=== PATIENT | female | born 1990 | race American Indian/Alaskan Native ===

== ENCOUNTER 2016-09-24 14:42 | Emergency (ER) | payer MEDICAID ==
[2016-09-24 14:42] VITALS: BMI 21.3
[2016-09-24 14:53] VITALS: RESP 18; TEMP 98.4; O2SAT 100
[2016-09-24] MEDS ORDERED: Albuterol-Ipratrop 3 mg / 0.5 (3 ml) UD IH STA (15:26)
[2016-09-24] MEDS ORDERED: Albuterol-Ipratrop 3 mg / 0.5 (3 ml) UD ONE (15:41)
--- NOTE | 2016-09-24 16:28 | C.PDOC ---
History Of Present Illness 26 y/o female presents to the ED with complains of seasonal allergy symptoms including itchy eyes, chest tightness and subjective fever. Pt took claritin this morning and fells better. Denies SOB, cough or any other complaints. Time Seen by Provider: 09/24/16 14:55 Chief Complaint (Nursing): Cough, Cold, Congestion History Per: Patient History/Exam Limitations: no limitations Onset/Duration Of Symptoms: Days Current Symptoms Are (Timing): Still Present Severity: Mild Recent travel outside of the [place]: No Past Medical History Reviewed: Historical Data, Nursing Documentation, Vital Signs Vital Signs: Last Vital Signs Temp 98.4 F 09/24/16 14:48 Pulse 85 09/24/16 16:38 Resp 18 09/24/16 16:38 BP 115/71 09/24/16 16:38 Pulse Ox 100 09/24/16 18:42 - Medical History PMH: Asthma, Bronchitis Family History: States: Unknown Family Hx - Social History Hx Tobacco Use: No Hx Alcohol Use: No Hx Substance Use: No - Immunization History Hx Tetanus Toxoid Vaccination: Yes Hx Influenza Vaccination: No Hx Pneumococcal Vaccination: No Review Of Systems Except As Marked, All Systems Reviewed And Found Negative. Constitutional: Positive for: Fever Eyes: Positive for: Other (itchy eyes) Cardiovascular: Positive for: Other (chest tightness) Respiratory: Negative for: Cough, Shortness of Breath Physical Exam - Physical Exam Appears: Non-toxic, No Acute Distress Skin: Warm, Dry, No Rash Head: Atraumatic, Normacephalic Ear(s): Bilateral: Normal Nose: Discharge (clear) Oral Mucosa: Moist Throat: Normal, No Erythema Neck: Normal ROM, Supple Cardiovascular: Rhythm Regular, No Murmur Respiratory: Normal Breath Sounds, No Rales, No Rhonchi, No Wheezing Gastrointestinal/Abdominal: Soft, No Tenderness Extremity: Bilateral: Atraumatic Neurological/Psych: Oriented x3 ED Course And Treatment O2 Sat by Pulse Oximetry: 100 (on room air) Pulse Ox Interpretation: Normal Reassessment Condition: Improved Medical Decision Making Medical Decision Making: Plan: prednisone, CXR, nebulizer treatment Disposition - Disposition Referrals: Justin Teran MD [Medical Doctor] - Disposition: HOME/ ROUTINE Disposition Time: 16:25 Condition: IMPROVED Additional Instructions: Follow up with PMD and product delivery specialist within 1-2 days. Return to ED if feel worse. 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 - Scribe Statement The provider has reviewed the documentation as recorded by the Cheliibchelsea Li All medical record entries made by the Danny were at my direction and personally dictated by me. I have reviewed the chart and agree that the record accurately reflects my personal performance of the history, physical exam, medical decision making, and the department course for this patient. I have also personally directed, reviewed, and agree with the discharge instructions and disposition.
[2016-09-24 16:38] VITALS: BP 115/71; PULSE 85
--- NOTE | 2016-09-24 17:31 | RAD ---
HISTORY: cough/wheezing COMPARISON: 04/18/15 TECHNIQUE: Chest PA and lateral FINDINGS: LUNGS: No active pulmonary disease. PLEURA: No significant pleural effusion identified. No pneumothorax apparent. CARDIOVASCULAR: Normal. OSSEOUS STRUCTURES: No significant abnormalities. VISUALIZED UPPER ABDOMEN: Normal. OTHER FINDINGS: None. IMPRESSION: No active disease.
== END 2016-09-24 16:38 | disposition home or self-care (01) ==
LOC: C.ER 14:42
DX: R50.9 Fever, unspecified (principal); J30.2 Other seasonal allergic rhinitis

== ENCOUNTER 2016-11-22 09:15 | Emergency (ER) | payer MEDICAID ==
[2016-11-22 09:16] VITALS: BMI 21.3
[2016-11-22 09:25] VITALS: BP 116/79; PULSE 95; RESP 20; TEMP 98.4; O2SAT 98
--- NOTE | 2016-11-22 10:43 | C.PDOC ---
History Of Present Illness 26 year old patient presents to the ED complaining of a headache for the past 3 days. Patient was diagnosed with sinusitis yesterday by her PMD and was given antibiotics. Patient states she still has a headache. She took Motrin last night , but none today. She describes the pain as the worst she's ever had. Patient denies nausea, vomiting, or dizziness. Time Seen by Provider: 11/22/16 09:30 Chief Complaint (Nursing): Headache History Per: Patient History/Exam Limitations: no limitations Current Symptoms Are (Timing): Still Present Severity: Mild Pain Scale Rating Of: 3 Quality: "Pain" Recent travel outside of the [place]: No Past Medical History Reviewed: Historical Data, Nursing Documentation, Vital Signs Vital Signs: Last Vital Signs Temp 98.4 F 11/22/16 09:22 Pulse 95 H 11/22/16 09:22 Resp 20 11/22/16 09:22 BP 116/79 11/22/16 09:22 Pulse Ox 98 11/22/16 12:33 - Medical History PMH: Asthma, Bronchitis Family History: States: Unknown Family Hx - Social History Hx Tobacco Use: No Hx Alcohol Use: No Hx Substance Use: No - Immunization History Hx Tetanus Toxoid Vaccination: Yes Hx Influenza Vaccination: No Hx Pneumococcal Vaccination: No Review Of Systems Except As Marked, All Systems Reviewed And Found Negative. Gastrointestinal: Negative for: Nausea, Vomiting Neurological: Positive for: Headache. Negative for: Dizziness Physical Exam - Physical Exam Appears: Non-toxic, No Acute Distress Skin: Warm, Dry Head: Atraumatic, Normacephalic Eye(s): bilateral: Normal Inspection, PERRL, EOMI Ear(s): Bilateral: Normal Nose: Normal, Other (bilateral maxillary sinus tenderness) Oral Mucosa: Moist Throat: Normal Neck: Normal ROM, Supple Chest: Symmetrical Cardiovascular: Rhythm Regular Respiratory: Normal Breath Sounds, No Rales, No Rhonchi, No Wheezing Back: Normal Inspection, No CVA Tenderness Extremity: Bilateral: Atraumatic Neurological/Psych: Oriented x3, Normal Speech, Normal Cognition Gait: Steady ED Course And Treatment O2 Sat by Pulse Oximetry: 98 (room air) Pulse Ox Interpretation: Normal Disposition - Disposition Referrals: [facility] Mariam Viramontes, [Non-Staff] - Disposition: HOME/ ROUTINE Disposition Time: 10:00 Condition: GOOD Additional Instructions: Thank you for letting us take care of you today. Your provider was Dr. Bearden. You were treated for sinus pressure. The emergency medical care you received today was directed at your acute symptoms. If you were prescribed any medication, please fill it and take as directed. It may take several days for your symptoms to resolve. Return to the Emergency Department if your symptoms worsen, do not improve, or if you have any other problems. Please contact your doctor or call one of the physicians/clinics you have been referred to that are listed on the Patient Visit Information form that is included in your discharge packet. Bring any paperwork you were given at discharge with you along with any medications you are taking to your follow up visit. Our treatment cannot replace ongoing medical care by a primary care provider (PCP) outside of the emergency department. Thank you for allowing the [facility] team to be part of your care today. Continue taking the antibiotic that you were given and follow up with your doctor in 2-3 days for re-evaluation. Prescriptions: Pseudoephedrine HCl [Pseudoephedrine ER] 120 mg PO Q12 #14 tablet.er Instructions: Sinusitis (ED) Forms: Work Excuse - Clinical Impression Clinical Impression: Sinusitis - Scribe Statement The provider has reviewed the documentation as recorded by the Scribe Kaylie Bustillo Provider Attestation: All medical record entries made by the Scribe were at my direction and personally dictated by me. I have reviewed the chart and agree that the record accurately reflects my personal performance of the history, physical exam, medical decision making, and the department course for this patient. I have also personally directed, reviewed, and agree with the discharge instructions and disposition.
== END 2016-11-22 10:10 | disposition home or self-care (01) ==
LOC: C.ER 09:15
DX: J32.9 Chronic sinusitis, unspecified (principal)

== ENCOUNTER 2016-12-10 09:41 | Emergency (ER) | payer MEDICAID ==
[2016-12-10 09:43] VITALS: BMI 20.5
[2016-12-10 09:48] VITALS: RESP 18; TEMP 98.2; O2SAT 100
--- NOTE | 2016-12-10 10:05 | C.PDOC ---
History Of Present Illness 26 yr old female with PMHx of asthma and irregular periods, presents to the ER with complaints of upper back pain, upper chest pain, cough with yellow sputum, vaginal itch prior to period starting and vaginal bleeding with clots, states her period started yesterday. Patient also states she feels dizzy which she is unable to explain. Patient denies fever, SOB, nausea, vomiting, abdominal pain, diarrhea, dysuria, weakness or numbness. Time Seen by Provider: 12/10/16 09:53 Chief Complaint (Nursing): Dizziness/Lightheaded History Per: Patient History/Exam Limitations: no limitations Onset/Duration Of Symptoms: Days Fall Associated With With Symptoms: No Recent travel outside of the [place]: No Past Medical History Reviewed: Historical Data, Nursing Documentation, Vital Signs Vital Signs: Last Vital Signs Temp 98.2 F 12/10/16 15:15 Pulse 68 12/10/16 15:15 Resp 18 12/10/16 15:15 BP 96/64 L 12/10/16 15:15 Pulse Ox 100 12/10/16 17:06 - Medical History PMH: Asthma, Bronchitis Family History: States: No Known Family Hx - Social History Hx Tobacco Use: No Hx Alcohol Use: No Hx Substance Use: No - Immunization History Hx Tetanus Toxoid Vaccination: No Hx Influenza Vaccination: No Hx Pneumococcal Vaccination: No Review Of Systems Constitutional: Negative for: Fever Cardiovascular: Positive for: Chest Pain (Upper ) Respiratory: Positive for: Cough, Sputum (Yellow sputum ). Negative for: Shortness of Breath Gastrointestinal: Negative for: Nausea, Vomiting, Abdominal Pain, Diarrhea Genitourinary: Positive for: Vaginal Bleeding (Due to period, passing clots). Negative for: Dysuria Musculoskeletal: Positive for: Back Pain (Upper back pain ) Neurological: Positive for: Dizziness. Negative for: Weakness, Numbness Physical Exam - Physical Exam Appears: Non-toxic, No Acute Distress Skin: Warm, Dry, No Rash Head: Atraumatic, Normacephalic Eye(s): bilateral: Normal Inspection, PERRL, EOMI (no nystagmus) Oral Mucosa: Moist Neck: Normal ROM Chest: Symmetrical, No Deformity, Tenderness (Minimal upper chest tenderness) Cardiovascular: Rhythm Regular, No Murmur Respiratory: Normal Breath Sounds, No Rales, No Rhonchi, No Stridor, No Wheezing Gastrointestinal/Abdominal: Normal Exam, Soft, No Tenderness, No Distention, No Guarding, No Rebound Back: Other ((+) Minimal bilateral shoulder tenderness) Extremity: Normal ROM, No Calf Tenderness, No Swelling Neurological/Psych: Oriented x3, Normal Speech, Normal Cognition, Normal Cranial Nerves, Normal Motor, Normal Sensation ED Course And Treatment - Laboratory Results Result Diagrams: 12/10/16 11:53 12/10/16 11:53 ECG: Interpreted By Me, Viewed By Me ECG Rhythm: Sinus Bradycardia ECG Interpretation: Normal Rate From EC (BPM) O2 Sat by Pulse Oximetry: 100 (RA) Pulse Ox Interpretation: Normal Progress Note: 1220 - Patient is requesting food. Medical Decision Making Medical Decision Making: PLAN: * CXR * EKG * CBC * CMP * POC * Urinalysis * Motrin PO * Sodium Chloride IV 322 pm pt feeling much better, tolerating po, no longer dizzy. still complains of vaginal itching. will d/c with monistat and physical therapy instructor f/u. pt lying comfortably on stretcher, using phone, in no acute distress. abdomen soft, nd,. nt on re-exam. Disposition Counseled Patient/Family Regarding: Studies Performed, Diagnosis, Need For Followup, Rx Given - Disposition [facility]errals: [facility] [Outside] Disposition: HOME/ ROUTINE Disposition Time: 15:24 Condition: STABLE Additional Instructions: Drink increased fluids. Take Tylenol or Motrin for cramps related to period. Use monistat when period is over. Follow up with your stereo map plotter operator or in medical clinic in the next 1-2 days. 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 - Scribe Statement The provider has reviewed the documentation as recorded by the Scribe Madeline Green All medical record entries made by the Scribe were at my direction and personally dictated by me. I have reviewed the chart and agree that the record accurately reflects my personal performance of the history, physical exam, medical decision making, and the department course for this patient. I have also personally directed, reviewed, and agree with the discharge instructions and disposition.
--- NOTE | 2016-12-10 10:14 | C.PDOC ---
Time Seen by Provider: 12/10/16 09:53 Chief Complaint (Nursing): Dizziness/Lightheaded Past Medical History Vital Signs: Last Vital Signs Temp 98.2 F 12/10/16 09:44 Pulse 60 12/10/16 09:44 Resp 18 12/10/16 09:44 BP 107/72 12/10/16 09:44 Pulse Ox 100 12/10/16 09:44 - Medical History PMH: Asthma, Bronchitis Family History: States: Unknown Family Hx - Social History Hx Tobacco Use: No Hx Alcohol Use: No Hx Substance Use: No - Immunization History Hx Tetanus Toxoid Vaccination: No Hx Influenza Vaccination: No Hx Pneumococcal Vaccination: No ED Course And Treatment O2 Sat by Pulse Oximetry: 100
[2016-12-10 11:22] LABS: SQUAMOUS EPITHIAL 11 /hpf (0-5); URINE BILIRUBIN NEGATIVE (NEGATIVE); URINE BLOOD 3+ (NEGATIVE); URINE CLARITY Hazy (Clear); URINE COLOR Yellow (YELLOW); URINE GLUCOSE (UA) NORMAL (Normal); URINE LEUKOCYTE ESTERASE NEG Leu/uL (Negative); URINE NITRATE NEGATIVE (NEGATIVE); URINE PROTEIN 1+ mg/dL (NEGATIVE); URINE UROBILINOGEN NORMAL mg/dL (0.2-1.0)
[2016-12-10] MEDS ORDERED: Sodium Chloride 0.9% 1,000 ML IV ONE (11:37)
[2016-12-10] MEDS ORDERED: Sodium Chloride 0.9% 1,000 ML ONE (11:42)
[2016-12-10 11:59] LABS: BASO % 0.5 % (0.0-2.0); EOS # 0.1 K/uL (0.0-0.7); EOS % 0.9 % (0.0-4.0); HEMOGLOBIN 12.1 g/dL (11.0-16.0); LYMPH # 2.7 K/uL (1.0-4.3); LYMPH % 37.9 % (20.0-40.0); MEAN CELL VOLUME 97.7 fL (81.0-99.0); MEAN CORPUSCULAR HEMOGLOBIN 32.5 pg (27.0-31.0); MEAN CORPUSCULAR HGB CONC 33.3 g/dL (33.0-37.0); MEAN PLATELET VOLUME 8.9 fL (7.2-11.7); MONO # 0.3 K/uL (0.0-0.8); MONO % 4.1 % (0.0-10.0); NEUT % 56.6 % (50.0-75.0); NRBC % 0.2 % (0.0-2.0); RBC 3.73 Mil/uL (3.80-5.20); RED CELL DISTRIBUTION WIDTH 12.7 % (11.5-14.5)
[2016-12-10 12:09] LABS: GFR AFRICAN-AMERICAN > 60; GFR NON-AFRICAN AMERICAN > 60
[2016-12-10 12:10] LABS: ALB/GLOB RATIO 1.3 (1.0-2.1); ALT/SGPT 31 U/L (9-52); AST/SGOT 22 U/L (14-36); BLOOD UREA NITROGEN 10 mg/dL (7-17); CALCIUM 8.7 mg/dl (8.6-10.4)
[2016-12-10 15:15] VITALS: BP 96/64; PULSE 68
--- NOTE | 2016-12-10 15:37 | RAD ---
HISTORY: coughyellow sputum, asthma COMPARISON: No prior. TECHNIQUE: Chest PA and lateral FINDINGS: LUNGS: No focal infiltrate or effusion. Bibasilar breast and nipple shadows. PLEURA: No significant pleural effusion identified. No pneumothorax apparent. CARDIOVASCULAR: Normal. OSSEOUS STRUCTURES: No significant abnormalities. VISUALIZED UPPER ABDOMEN: Normal. OTHER FINDINGS: None. IMPRESSION: No active disease.
--- NOTE | 2016-12-12 13:35 | CARD ---
APPROVED REPORT EKG Measurement Heart [id number] <Conclusion> Sinus bradycardia Otherwise normal ECG
== END 2016-12-10 15:38 | disposition home or self-care (01) ==
LOC: C.ER 09:41
DX: B37.3 Candidiasis of vulva and vagina (principal); N92.0 Excessive and frequent menstruation with regular cycle
CPT/HCPCS: 71020; 80053; 81001; 82948; 85025; 93005; 96360; 99285; J7040

== ENCOUNTER 2017-03-10 18:46 | Emergency (ER) | payer MEDICAID ==
[2017-03-10 18:46] VITALS: BMI 20.5
[2017-03-10 18:59] VITALS: BP 135/85; PULSE 70; RESP 16; TEMP 98.3; O2SAT 100
--- NOTE | 2017-03-10 19:52 | C.PDOC ---
History Of Present Illness Patient is a 26 year old female, who was brought to the emergency department by BLS complaining of flea bites all over the body onset since last night. Patient reports she picked up a stray cat that had fleas, and now she has fleas along with everyone in her family. Patient has rash over body, neck, and legs. She denies any fever, chills, nausea, vomit or diarrhea. No further medical complaints. PMD: Justin Teran Time Seen by Provider: 03/10/17 19:10 Chief Complaint (Nursing): Lower Extremity Problem/Injury History Per: Patient History/Exam Limitations: no limitations Onset/Duration Of Symptoms: Days (X1) Current Symptoms Are (Timing): Still Present Past Medical History Reviewed: Historical Data, Nursing Documentation, Vital Signs Vital Signs: Last Vital Signs Temp 98.3 F 03/10/17 18:57 Pulse 70 03/10/17 18:57 Resp 16 03/10/17 18:57 BP 135/85 03/10/17 18:57 Pulse Ox 100 03/10/17 19:59 - Medical History PMH: Asthma, Bronchitis Family History: States: Unknown Family Hx - Social History Hx Tobacco Use: No Hx Alcohol Use: No Hx Substance Use: No - Immunization History Hx Tetanus Toxoid Vaccination: No Hx Influenza Vaccination: No Hx Pneumococcal Vaccination: No Review Of Systems Except As Marked, All Systems Reviewed And Found Negative. Constitutional: Negative for: Fever, Chills Gastrointestinal: Negative for: Nausea, Vomiting, Diarrhea Skin: Positive for: Rash (flea bites on her body, neck and legs) Physical Exam - Physical Exam Appears: Well, No Acute Distress Skin: Normal Color, Warm, Dry, Rash (Insect bites to the body, neck and legs. No sign of cellulitis. ) Eye(s): bilateral: Normal Inspection Neck: Normal, Normal ROM, Supple Respiratory: Normal Breath Sounds Extremity: Normal ROM, No Deformity Neurological/Psych: Normal Speech, Normal Motor, Normal Sensation ED Course And Treatment O2 Sat by Pulse Oximetry: 100 (RA) Pulse Ox Interpretation: Normal Disposition - Disposition Referrals: Justin Teran MD [Medical Doctor] - Disposition: HOME/ ROUTINE Disposition Time: 19:50 Condition: GOOD Additional Instructions: Follow up with the medical doctor/clinic within 1-2 days. Return if worsened. Prescriptions: DiphenhydrAMINE [Benadryl] 25 mg PO QID #28 cap Permethrin 1% Kit [Nix Complete Lice Elimination Kit 1%] 59 ml TP ONCE #1 bottle Permethrin 5% [Permethrin 5% Cream] 60 gm EXT ONCE #2 tube Instructions: Insect Bite or Sting (ED) Forms: [employer] (Sri Lankan) - Clinical Impression Clinical Impression: Insect bite - Scribe Statement The provider has reviewed the documentation as recorded by the Cheliibchelsea Sethi All medical record entries made by the Cheliibchelsea were at my direction and personally dictated by me. I have reviewed the chart and agree that the record accurately reflects my personal performance of the history, physical exam, medical decision making, and the department course for this patient. I have also personally directed, reviewed, and agree with the discharge instructions and disposition.
== END 2017-03-10 20:07 | disposition home or self-care (01) ==
LOC: C.ER 18:46
DX: S80.862A Insect bite (nonvenomous), left lower leg, initial encounter (principal); S80.861A Insect bite (nonvenomous), right lower leg, initial encounter; S10.96XA Insect bite of unspecified part of neck, initial encounter; W57.XXXA Bitten or stung by nonvenomous insect and other nonvenomous arthropods, initial encounter

== ENCOUNTER 2017-04-18 19:51 | Emergency (ER) | payer MEDICAID ==
[2017-04-18 19:51] VITALS: BMI 20.5
[2017-04-18 20:02] VITALS: RESP 18; TEMP 97.8
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
[2017-04-18 20:50] VITALS: BP 105/67; PULSE 66
[2017-04-18 20:57] VITALS: O2SAT 98
== END 2017-04-18 20:55 | disposition home or self-care (01) ==
LOC: C.ER 19:51
DX: S29.012D Strain of muscle and tendon of back wall of thorax, subsequent encounter (principal); X58.XXXD Exposure to other specified factors, subsequent encounter; R07.89 Other chest pain

== ENCOUNTER 2017-06-09 12:10 | Emergency (ER) | payer MEDICAID ==
[2017-06-09 12:26] VITALS: BMI 20.8
--- NOTE | 2017-06-09 14:49 | C.PDOC ---
History Of Present Illness 26 year old female, with history of yeast infection, presents to ED for evaluation of vaginal itching, and suprapubic abdominal pain for the past 2 months. Pt reports using prescribed and over the counter vaginal cream without relief. Pt also reports dysuria and urinary frequency for the past few days. Otherwise, denies hematuria, back pain, n/v/d, constipation, or fever. Notes last menstrual period was 04/13/17. Time Seen by Provider: 06/09/17 12:45 Chief Complaint (Nursing): Abdominal Pain History Per: Patient History/Exam Limitations: no limitations Onset/Duration Of Symptoms: Days Current Symptoms Are (Timing): Still Present Location Of Pain/Discomfort: Suprapubic Radiation Of Pain To:: None Quality Of Discomfort: "Pain" Associated Symptoms: Urinary Symptoms. denies: Loss Of Appetite, Back Pain, Chest Pain, Constipation Exacerbating Factors: None Alleviating Factors: None Recent travel outside of the [place]: No Additional History Per: Patient Abnormal Vaginal Bleeding: No Last Menstral Period: 04/13/17 Past Medical History Reviewed: Historical Data, Nursing Documentation, Vital Signs Vital Signs: Last Vital Signs Temp 97.7 F 06/09/17 12:26 Pulse 83 06/09/17 12:26 Resp 18 06/09/17 12:26 BP 126/83 06/09/17 12:26 Pulse Ox 100 06/09/17 17:59 - Medical History PMH: Asthma, Bronchitis Denies: Chronic Kidney Disease Family History: States: Unknown Family Hx - Social History Hx Tobacco Use: No Hx Alcohol Use: No Hx Substance Use: No - Immunization History Hx Tetanus Toxoid Vaccination: No Hx Influenza Vaccination: No Hx Pneumococcal Vaccination: No Review Of Systems Except As Marked, All Systems Reviewed And Found Negative. Constitutional: Negative for: Fever, Chills Gastrointestinal: Positive for: Abdominal Pain. Negative for: Nausea, Vomiting , Diarrhea, Constipation Genitourinary: Positive for: Dysuria, Frequency, Vaginal Discharge (vaginal itching). Negative for: Incontinence, Hematuria, Vaginal Bleeding, Rash Musculoskeletal: Negative for: Back Pain Physical Exam - Physical Exam Appears: Non-toxic, No Acute Distress Skin: Normal Color, Warm, Dry Head: Atraumatic, Normacephalic Eye(s): bilateral: Normal Inspection Oral Mucosa: Moist Chest: Symmetrical Cardiovascular: Rhythm Regular Respiratory: No Accessory Muscle Use Gastrointestinal/Abdominal: Normal Exam, Soft, No Tenderness, No Guarding, No Rebound Back: No CVA Tenderness Extremity: Normal ROM Neurological/Psych: Oriented x3, Normal Speech ED Course And Treatment O2 Sat by Pulse Oximetry: 100 (RA) Pulse Ox Interpretation: Normal - CT Scan/US Preg 1st trimester US Other Rad Studies (CT/US): Read By Radiologist, Radiology Report Reviewed CT/US Interpretation: PROCEDURE: OB Pelvic Ultrasound. HISTORY: , abdominal pain. COMPARISON: None available. FINDINGS: UTERUS: Gestational sac: Single intrauterine gestation. Heart rate: 140 bpm. age ( Ultrasound estimated): 6 weeks 4 days 0 weeks 3 days. Lizabeth-gestational hemorrhage: There is 1.9 x 0.8 x 1.3 centimeter subchorionic bleed noted adjacent to the gestational sac. Date of delivery (Ultrasound estimated) : . Uterus measures 9.5 x 5.8 x 6.5 cm. Normal in size and appearance. CERVIX: Long and closed. No cervical abnormality seen. RIGHT OVARY: Measures 3.3 x 2.3 x 2.7 cm. No mass lesion. Normal flow. Complex cyst may represent corpus luteum cyst noted at the right ovary measures 1.5 x 1.3 x 1.8 centimeter. LEFT OVARY: Measures 2.7 x 1.5 x 2.3 cm. No solid mass. Normal flow. FREE FLUID: None. OTHER FINDINGS: None. IMPRESSION: Single intrauterine live with ultrasound estimated gestational age of 6 weeks 4 days 0 weeks 3 days. Estimated date of delivery by ultrasound is 2017. Subchorionic bleed seen adjacent to the gestational sac measures 1.9 x 0.8 x 1.3 centimeter. Interval follow-up reassessment by ultrasound is suggested. Progress Note: UA, blood work, Preg 1st trimester ultrasound ordered and reviewed. On reassessment, patient is resting comfortably, and is in no acute distress. Patient was instructed to follow up with physician/clinic in 1-2 days for further evaluation. Disposition Counseled Patient/Family Regarding: Diagnosis, Need For Followup, Rx Given - Disposition Disposition: HOME/ ROUTINE Disposition Time: 18:10 Condition: STABLE Additional Instructions: Please follow up with [facility] Take meds as directed Return to ER if worse Prescriptions: Nitrofurantoin Macrocrystals [Macrobid] 1 cap PO BID #14 cap Instructions: Urinary Tract Infection in (ED) Forms: [facility] (Eth[place]ian) - Clinical Impression Clinical Impression: , UTI (urinary tract infection) - PA / CONSTRUCTION COORDINATOR / Resident Statement MD/DO has reviewed & agrees with the documentation as recorded. - Scribe Statement The provider has reviewed the documentation as recorded by the Scribe Allyson Bustillo All medical record entries made by the Scribe were at my direction and personally dictated by me. I have reviewed the chart and agree that the record accurately reflects my personal performance of the history, physical exam, medical decision making, and the department course for this patient. I have also personally directed, reviewed, and agree with the discharge instructions and disposition.
[2017-06-09 15:07] VITALS: RESP 18
[2017-06-09 15:59] LABS: SQUAMOUS EPITHIAL 4 /hpf (0-5); URINE BACTERIA FEW (<OCC); URINE BILIRUBIN NEGATIVE (NEGATIVE); URINE BLOOD NEGATIVE (NEGATIVE); URINE CLARITY Hazy (Clear); URINE COLOR Yellow (YELLOW); URINE GLUCOSE (UA) NORMAL (Normal); URINE LEUKOCYTE ESTERASE NEG Leu/uL (Negative); URINE NITRATE POSITIVE (NEGATIVE); URINE PROTEIN NEGATIVE (NEGATIVE); URINE UROBILINOGEN NORMAL mg/dL (0.2-1.0)
--- NOTE | 2017-06-09 17:34 | US ---
PROCEDURE: OB Pelvic Ultrasound HISTORY: , abdominal pain COMPARISON: None available. FINDINGS: UTERUS: Gestational sac: Single intrauterine gestation. Heart rate: 140 bpm. age (Ultrasound estimated): 6 weeks 4 days 0 weeks 3 days Lizabeth-gestational hemorrhage: There is 1.9 x 0.8 x 1.3 centimeter subchorionic bleed noted adjacent to the gestational sac. Date of delivery (Ultrasound estimated) : 01/29/2018 Uterus measures 9.5 x 5.8 x 6.5 cm. Normal in size and appearance. CERVIX: Long and closed. No cervical abnormality seen. RIGHT OVARY: Measures 3.3 x 2.3 x 2.7 cm. No mass lesion. Normal flow. Complex cyst may represent corpus luteum cyst noted at the right ovary measures 1.5 x 1.3 x 1.8 centimeter. LEFT OVARY: Measures 2.7 x 1.5 x 2.3 cm. No solid mass. Normal flow. FREE FLUID: None. OTHER FINDINGS: None. IMPRESSION: Single intrauterine live with ultrasound estimated gestational age of 6 weeks 4 days 0 weeks 3 days. Estimated date of delivery by ultrasound is 01/29/2018. Subchorionic bleed seen adjacent to the gestational sac measures 1.9 x 0.8 x 1.3 centimeter. Interval follow-up reassessment by ultrasound is suggested.
[2017-06-09 18:30] VITALS: BP 118/62; PULSE 80; TEMP 97.1; O2SAT 99
== END 2017-06-09 18:29 | disposition home or self-care (01) ==
LOC: C.ER 12:10
DX: O23.41 Unspecified infection of urinary tract in pregnancy, first trimester (principal); Z3A.01 Less than 8 weeks gestation of pregnancy

== ENCOUNTER 2017-06-18 21:15 | Emergency (ER) | payer MEDICAID ==
[2017-06-18 21:15] VITALS: BMI 20.8
[2017-06-18 21:26] VITALS: RESP 18; O2SAT 100
[2017-06-18] MEDS ORDERED: DiphenhydrAMINE 12.5 mg/5 ml LIQ UD (5 ml) PO STA (21:58)
[2017-06-18] MEDS ORDERED: Albuterol 0.083% Inhal Sol (2.5 mg/3 mL) UD INH SCH (22:00)
[2017-06-18] MEDS ORDERED: Albuterol-Ipratrop 3 mg / 0.5 (3 ml) UD ONE (22:10)
[2017-06-18] MEDS ORDERED: DiphenhydrAMINE 12.5 mg/5 ml LIQ UD (5 ml) ONE ×2 (22:12)
[2017-06-18] MEDS ORDERED: Albuterol 0.083% Inhal Sol (2.5 mg/3 mL) UD ONE (22:13)
[2017-06-18 23:08] LABS: HCG,QUALITATIVE URINE POSITIVE (NEGATIVE); SQUAMOUS EPITHIAL 11 /hpf (0-5); URINE BACTERIA RARE (<OCC); URINE BILIRUBIN NEGATIVE (NEGATIVE); URINE BLOOD NEGATIVE (NEGATIVE); URINE CLARITY Hazy (Clear); URINE COLOR Yellow (YELLOW); URINE GLUCOSE (UA) NORMAL (Normal); URINE LEUKOCYTE ESTERASE NEG Leu/uL (Negative); URINE NITRATE NEGATIVE (NEGATIVE); URINE PROTEIN NEGATIVE (NEGATIVE); URINE UROBILINOGEN NORMAL mg/dL (0.2-1.0)
[2017-06-18 23:27] VITALS: BP 97/59; PULSE 90; TEMP 98.1
--- NOTE | 2017-06-18 23:30 | C.PDOC ---
History Of Present Illness Patient is a 26 y/o female who presents to the ED with complaints of cough and congestion for the last 2 days. Patient reports her asthma is acting up and admits to being 8 weeks . Patient notes generalized body aches but denies any localized abdominal pain or vaginal discharge or bleeding. No other physical complaints at this time. Time Seen by Provider: 06/18/17 21:35 Chief Complaint (Nursing): Cough, Cold, Congestion History Per: Patient History/Exam Limitations: no limitations Onset/Duration Of Symptoms: Days (2 days) Current Symptoms Are (Timing): Still Present Associated Symptoms: Cough, Nasal Congestion Recent travel outside of the [place]: No Past Medical History Reviewed: Historical Data, Nursing Documentation, Vital Signs Vital Signs: Last Vital Signs Temp 98.1 F 06/18/17 23:26 Pulse 90 06/18/17 23:26 Resp 18 06/18/17 23:26 BP 97/59 L 06/18/17 23:26 Pulse Ox 100 06/19/17 00:17 - Medical History PMH: Asthma, Bronchitis Denies: Chronic Kidney Disease Surgical History: No Surg Hx Family History: States: No Known Family Hx - Social History Hx Tobacco Use: No Hx Alcohol Use: No Hx Substance Use: No - Immunization History Hx Tetanus Toxoid Vaccination: No Hx Influenza Vaccination: No Hx Pneumococcal Vaccination: No Review Of Systems ENT: Positive for: Nose Congestion Respiratory: Positive for: Cough Gastrointestinal: Negative for: Abdominal Pain Musculoskeletal: Positive for: Other (generalized body aches) Physical Exam - Physical Exam Appears: Well, Non-toxic, No Acute Distress Eye(s): bilateral: Normal Inspection Oral Mucosa: Moist Throat: Normal, No Erythema, No Exudate Cardiovascular: Rhythm Regular, No Murmur Respiratory: Decreased Breath Sounds, Wheezing (scattered, expiratory) Gastrointestinal/Abdominal: Soft, No Tenderness Neurological/Psych: Oriented x3, Normal Speech, Normal Cognition, Other (no focal deficits) ED Course And Treatment O2 Sat by Pulse Oximetry: 100 Progress Note: Tylenol, Prednisone, and Benadryl administered. Nebulizer treatment given. On re-eval, patient's breathing improved but complains of onset of PAGAN. Patient okay with being sent home and advised to follow up with PMD if symptoms worsen. Disposition Counseled Patient/Family Regarding: Diagnosis, Need For Followup, Rx Given - Disposition Disposition: HOME/ ROUTINE Disposition Time: 23:27 Condition: STABLE Additional Instructions: Please follow up with PMD Take meds as directed Increase PO follow up with OB/ [facility] Bed rest/ Tylenol for pain Return to ER if worse Prescriptions: Albuterol HFA [Ventolin HFA 90 mcg/actuation (8 g)] 2 puff IH [id number] #1 inhaler Albuterol 0.083% [Albuterol 0.083% Inhal Meeta (2.5 mg/3 ml) UD] 2.5 mg IH TID # 100 neb predniSONE [Prednisone] 40 mg PO DAILY #8 tab Instructions: Upper Respiratory Infection (ED) Forms: [employer] (Romansh) - Clinical Impression Clinical Impression: Influenza-like illness - Scribe Statement The provider has reviewed the documentation as recorded by the Scribe Mireille Ghosh All medical record entries made by the Scribe were at my direction and personally dictated by me. I have reviewed the chart and agree that the record accurately reflects my personal performance of the history, physical exam, medical decision making, and the department course for this patient. I have also personally directed, reviewed, and agree with the discharge instructions and disposition.
== END 2017-06-18 23:40 | disposition home or self-care (01) ==
LOC: C.ER 21:15
DX: O26.891 Other specified pregnancy related conditions, first trimester (principal); J11.1 Influenza due to unidentified influenza virus with other respiratory manifestations; Z3A.08 8 weeks gestation of pregnancy

== ENCOUNTER 2018-02-08 16:16 | Emergency (ER) | payer MEDICAID, OTHER ==
[2018-02-08 16:17] VITALS: BMI 20.8
[2018-02-08 16:52] VITALS: BP 134/88; PULSE 76; RESP 16; TEMP 98.2; O2SAT 100
--- NOTE | 2018-02-08 17:21 | C.PDOC ---
History Of Present Illness 27 yo female come in for evaluation of "vaginal pain" developed fo past 3 days. Pt reports, pain is localized over " vaginal area", pain on urination, scant white vaginal discharge. Otherwise, pt denies recent illness, fever, chills, sore throat, abd. pain, N/V, back pain, hematuria, denies recent unprotected sex. Ambulate to Ed for evaluation, not in any apparent distress. Time Seen by Provider: 02/08/18 16:48 Chief Complaint (Nursing): Female Genitourinary History Per: Patient Past Medical History Reviewed: Historical Data, Nursing Documentation, Vital Signs Vital Signs: Last Vital Signs Temp 98.2 F 02/08/18 16:50 Pulse 76 02/08/18 16:50 Resp 16 02/08/18 16:50 BP 134/88 02/08/18 16:50 Pulse Ox 100 02/08/18 17:23 - Medical History PMH: Asthma, Bronchitis Denies: Chronic Kidney Disease Surgical History: Carotid Endarterectomy, (12/03/17) Family History: States: Unknown Family Hx - Social History Hx Tobacco Use: No Hx Alcohol Use: No Hx Substance Use: No - Immunization History Hx Tetanus Toxoid Vaccination: No Hx Influenza Vaccination: No Hx Pneumococcal Vaccination: No Review Of Systems Except As Marked, All Systems Reviewed And Found Negative. Constitutional: Negative for: Fever, Chills ENT: Negative for: Throat Pain Cardiovascular: Negative for: Chest Pain, Palpitations Respiratory: Negative for: Cough, Shortness of Breath Gastrointestinal: Negative for: Nausea, Vomiting, Abdominal Pain Genitourinary: Positive for: Incontinence, Vaginal Discharge. Negative for: Dysuria Musculoskeletal: Negative for: Neck Pain, Back Pain Skin: Negative for: Rash Neurological: Negative for: Weakness, Numbness Physical Exam - Physical Exam Appears: Well, Non-toxic, No Acute Distress Skin: Normal Color, Warm, Dry, No Rash Eye(s): bilateral: PERRL Nose: No Flaring, No Discharge Oral Mucosa: Moist Tongue: Normal Appearing Throat: No Erythema, No Drooling Neck: Supple Cardiovascular: Rhythm Regular Respiratory: No Decreased Breath Sounds, No Accessory Muscle Use, No Stridor, No Wheezing Gastrointestinal/Abdominal: Soft, No Tenderness, No Distention, No Guarding Back: No CVA Tenderness Pelvic: No Vaginal Bleeding, Vaginal Discharge (copious white-thick discharge), No Cervical Motion Tenderness, No Adnexal Tenderness Extremity: Normal ROM, No Deformity, No Swelling Neurological/Psych: Oriented x3, Normal Speech ED Course And Treatment - Laboratory Results Urine POC: Negative O2 Sat by Pulse Oximetry: 100 Pulse Ox Interpretation: Normal Progress Note: On re-eval, pt is afebrile, hemodynamicaly stable. NOn-toxic. Ambulatory in ED with stable gait. ENT: no acute findings. ABd: benign, (-) guarding, (-) rebound. back: (-) CVA tenderness. UA results review (+) UTI. Pt has clinical findings c/w UTI, candidal vulvovaginitis. Pt advised on course of ds. ref. to F/U with PMD, ASSISTANT BOOKKEEPER in 2-3 days for re-eval. return to ED if any worsening or new changes. Disposition Counseled Patient/Family Regarding: Studies Performed, Diagnosis, Need For Followup, Rx Given - Disposition Referrals: Justin Teran MD [Medical Doctor[facility] - [facility]] Disposition: HOME/ ROUTINE Disposition Time: 18:01 Condition: STABLE Additional Instructions: Encourage fluids Take medication s prescribed Follow up with PMD, ASSISTANT BOOKKEEPER in 2-3 days for re-evaluation. return to Ed if any worsening or new changes. Prescriptions: Miconazole/Cleanser 17 On Wipe [Monistat 7 Combination Pack] 1 each VG HS #1 kit Nitrofurantoin Macrocrystals [Macrobid] 1 cap PO BID #14 cap Instructions: Urinary Tract Infections in Adults, Vulvovaginal Yeast Infection Forms: [facility] (Guyanese) - Clinical Impression Clinical Impression: Yeast infection, UTI (urinary tract infection)
[2018-02-08 17:29] LABS: HCG,QUALITATIVE URINE NEGATIVE (NEGATIVE)
[2018-02-08 17:46] LABS: SQUAMOUS EPITHIAL 1 /hpf (0-5); URINE BACTERIA FEW (<OCC); URINE BILIRUBIN NEGATIVE (NEGATIVE); URINE BLOOD 1+ (NEGATIVE); URINE CLARITY Clear (Clear); URINE COLOR Yellow (YELLOW); URINE GLUCOSE (UA) NORMAL (Normal); URINE PROTEIN NEGATIVE (NEGATIVE); URINE UROBILINOGEN NORMAL mg/dL (0.2-1.0)
[2018-02-08 17:51] LABS: URINE LEUKOCYTE ESTERASE 1+ Leu/uL (Negative)
== END 2018-02-08 18:36 | disposition home or self-care (01) ==
LOC: C.ER 16:16
DX: N39.0 Urinary tract infection, site not specified (principal); B37.3 Candidiasis of vulva and vagina

== ENCOUNTER 2018-08-21 13:40 | Emergency (ER) | payer SELFPAY ==
[2018-08-21 13:40] VITALS: BMI 20.8
[2018-08-21 14:03] VITALS: TEMP 97.6; O2SAT 100
[2018-08-21 16:14] LABS: BASO % 0.3 % (0.0-2.0); EOS # 0.1 K/uL (0.0-0.7); EOS % 0.5 % (0.0-4.0); HEMOGLOBIN 12.4 g/dL (11.0-16.0); LYMPH # 2.6 K/uL (1.0-4.3); LYMPH % 22.8 % (20.0-40.0); MEAN CELL VOLUME 98.3 fL (81.0-99.0); MEAN CORPUSCULAR HEMOGLOBIN 32.6 pg (27.0-31.0); MEAN CORPUSCULAR HGB CONC 33.2 g/dL (33.0-37.0); MEAN PLATELET VOLUME 8.7 fL (7.2-11.7); MONO # 0.5 K/uL (0.0-0.8); MONO % 4.2 % (0.0-10.0); NEUT # 8.4 K/uL (1.8-7.0); NEUT % 72.2 % (50.0-75.0); RBC 3.79 Mil/uL (3.80-5.20); RED CELL DISTRIBUTION WIDTH 13.3 % (11.5-14.5); WHITE BLOOD COUNT 11.6 K/uL (4.8-10.8)
[2018-08-21 16:15] LABS: SQUAMOUS EPITHIAL 7 /hpf (0-5); URINE BACTERIA RARE (<OCC); URINE BILIRUBIN NEGATIVE (NEGATIVE); URINE BLOOD NEGATIVE (NEGATIVE); URINE CLARITY Hazy (Clear); URINE COLOR Yellow (YELLOW); URINE GLUCOSE (UA) NORMAL (Normal); URINE LEUKOCYTE ESTERASE NEG Leu/uL (Negative); URINE PROTEIN NEGATIVE (NEGATIVE); URINE UROBILINOGEN NORMAL mg/dL (0.2-1.0)
[2018-08-21 16:21] LABS: INR 1.1; PARTIAL THROMBOPLASTIN TIME 32 SECONDS (21-34); PROTHROMBIN TIME 11.5 SECONDS (9.7-12.2)
[2018-08-21 16:24] LABS: ALB/GLOB RATIO 1.7 (1.0-2.1); ALBUMIN 4.8 g/dL (3.5-5.0); ALT/SGPT 16 U/L (9-52); AST/SGOT 21 U/L (14-36); BLOOD UREA NITROGEN 6 mg/dL (7-17); GFR NON-AFRICAN AMERICAN > 60
[2018-08-21 16:46] LABS: CK-MB < 0.22 ng/mL (0.0-3.38)
[2018-08-21 16:51] LABS: D DIMER < 200 ng/mlDDU (0-243)
--- NOTE | 2018-08-21 17:30 | US ---
Date of service: 08/21/2018 PROCEDURE: OB Pelvic Ultrasound HISTORY: , pelvic pain LMP: 06/26/2018 COMPARISON: None available. FINDINGS: UTERUS: Gestational sac: Single live intrauterine gestation. Heart rate: 158 bpm. Gestational sac diameter measures 3.67 cm corresponding to 8 weeks and 6 days of gestational age. Yolk sac is visualized. pole measures 1.74 cm corresponding to 8 weeks and 1 day of gestational age. age (Ultrasound estimated): 8 weeks and 4 days Perigestational hemorrhage: There is a 2.4 x 0.7 x 1.4 cm subchorionic hemorrhage. Date of delivery (Ultrasound estimated) : 03/29/2019 Uterus measures 10.0 x 7.1 x 6.5 cm. Normal in size and appearance. CERVIX: Measures 2.15 cm. Long and closed. No cervical abnormality seen. There is a 2.0 x 1.4 x 2.1 cm corpus luteum cyst. RIGHT OVARY: Measures 3.3 x 2.7 x 3.3 cm. No mass lesion. Normal flow. LEFT OVARY: Measures 2.2 x 1.7 x 1.7 cm. No solid mass. Normal flow. FREE FLUID: None. OTHER FINDINGS: None. IMPRESSION: 1. Single live intrauterine gestation with mean gestational age of 8 weeks and 4 days. The estimated date of delivery by ultrasound is 03/29/2019. The ultrasound dates correspond with the clinical dates. 2. 2.4 x 0.7 x 1.4 cm subchorionic hemorrhage. Clinical follow-up is advised.
--- NOTE | 2018-08-21 18:02 | C.PDOC ---
History Of Present Illness 28 y/o female, 8 week , presents to the ER complaining of suprapubic abdominal pain. Patient states that she also has some mid chest pain. Patient denies having fever,chills, nausea, vomiting, dysuria, hematuria,vaginal bleed ing, and vaginal discharge. Time Seen by Provider: 08/21/18 14:41 Chief Complaint (Nursing): Chest Pain History Per: Patient History/Exam Limitations: no limitations Onset/Duration Of Symptoms: Days Current Symptoms Are (Timing): Still Present Severity: Moderate Past Medical History Reviewed: Historical Data, Nursing Documentation, Vital Signs Vital Signs: Last Vital Signs Temp 97.6 F 08/21/18 13:59 Pulse 65 08/21/18 16:16 Resp 14 08/21/18 16:16 BP 103/68 08/21/18 16:16 Pulse Ox 100 08/21/18 16:16 - Medical History PMH: Asthma, Bronchitis Denies: Chronic Kidney Disease Surgical History: Carotid Endarterectomy, (12/03/17) Family History: States: No Known Family Hx - Social History Hx Tobacco Use: No Hx Alcohol Use: No Hx Substance Use: No - Immunization History Hx Tetanus Toxoid Vaccination: No Hx Influenza Vaccination: No Hx Pneumococcal Vaccination: No Review Of Systems Except As Marked, All Systems Reviewed And Found Negative. Constitutional: Negative for: Fever, Chills Cardiovascular: Positive for: Chest Pain Respiratory: Negative for: Shortness of Breath Gastrointestinal: Positive for: Abdominal Pain. Negative for: Nausea, Vomiting Genitourinary: Negative for: Dysuria, Hematuria, Vaginal Discharge, Vaginal Bleeding Physical Exam - Physical Exam Appears: Non-toxic, No Acute Distress Skin: Normal Color, Warm, Dry Head: Atraumatic, Normacephalic Eye(s): bilateral: Normal Inspection Nose: Normal Oral Mucosa: Moist Neck: Supple Chest: Symmetrical, Tenderness (signficant reproducible chest wall tenderness) Cardiovascular: Rhythm Regular Respiratory: Normal Breath Sounds, No Rales, No Rhonchi, No Wheezing Gastrointestinal/Abdominal: Soft, Tenderness (mild suprapubic tenderness), No Guarding, No Rebound Neurological/Psych: Oriented x3, Normal Speech ED Course And Treatment - Laboratory Results Result Diagrams: 08/21/18 16:01 08/21/18 16:01 Lab Results: PT 11.5 SECONDS (9.7-12.2) 08/21/18 16:01 INR 1.1 08/21/18 16:01 APTT 32 SECONDS (21-34) 08/21/18 16:01 D-Dimer, Quantitative < 200 ng/mlDDU (0-243) 08/21/18 16:01 Troponin I < 0.0120 ng/mL (0.00-0.120) 08/21/18 16:01 Total Bilirubin 0.6 mg/dL (0.2-1.3) 08/21/18 16:01 AST 21 U/L (14-36) 08/21/18 16:01 ALT 16 U/L (9-52) 08/21/18 16:01 Alkaline Phosphatase 62 U/L (38-126) 08/21/18 16:01 Total Protein 7.5 g/dL (6.3-8.3) 08/21/18 16:01 Albumin 4.8 g/dL (3.5-5.0) 08/21/18 16:01 Globulin 2.8 gm/dL (2.2-3.9) 08/21/18 16:01 Albumin/Globulin Ratio 1.7 (1.0-2.1) 08/21/18 16:01 Urine Color Yellow (YELLOW) 08/21/18 16:01 Urine Clarity Hazy (Clear) 08/21/18 16:01 Urine pH 6.0 (5.0-8.0) 08/21/18 16:01 Ur Specific [place] 1.018 (1.003-1.030) 08/21/18 16:01 Urine Protein Negative mg/dL (NEGATIVE) 08/21/18 16:01 Urine Glucose (UA) Normal mg/dL (Normal) 08/21/18 16:01 Urine Ketones Negative mg/dL (NEGATIVE) 08/21/18 16:01 Urine Blood Negative (NEGATIVE) 08/21/18 16:01 Urine Nitrate Negative (NEGATIVE) 08/21/18 16:01 Urine Bilirubin Negative (NEGATIVE) 08/21/18 16:01 Urine Urobilinogen Normal mg/dL (0.2-1.0) 08/21/18 16:01 Ur Leukocyte Esterase Neg Mireille/uL (Negative) 08/21/18 16:01 Urine WBC (Auto) 1 /hpf (0-5) 08/21/18 16:01 Urine RBC (Auto) 1 /hpf (0-3) 08/21/18 16:01 Ur Squamous Epith Cells 7 /hpf (0-5) H 08/21/18 16:01 Urine Bacteria Rare (<OCC) 08/21/18 16:01 Beta HCG, Quant [id number] mIU/ML 08/21/18 16:01 ECG: Interpreted By Me, Viewed By Me ECG Rhythm: Sinus Rhythm Interpretation Of ECG: NSR with no T wave abnormalities Rate From EC O2 Sat by Pulse Oximetry: 100 (RA) Pulse Ox Interpretation: Normal - CT Scan/US US_OB Other Rad Studies (CT/US): Read By Radiologist, Radiology Report Reviewed CT/US Interpretation: Date of service: 08/21/2018. PROCEDURE: OB Pelvic Ultrasound. HISTORY: , pelvic pain. LMP: 06/26/2018. COMPARISON: None available. FINDINGS: UTERUS: Gestational sac: Single live intrauterine gestation. Heart rate: 158 bpm. Gestational sac diameter measures 3.67 cm corresponding to 8 weeks and 6 days of gestational age. Yolk sac is visualized. pole measures 1.74 cm corresponding to 8 weeks and 1 day of gestational age. age (Ultrasound estimated): 8 weeks and 4 days. Perigestational hemorrhage: There is a 2.4 x 0.7 x 1.4 cm subchorionic hemorrhage. Date of delivery (Ultrasound estimated) : 03/29/2019. Uterus measures 10.0 x 7.1 x 6.5 cm. Normal in size and appearance. CERVIX: Measures 2.15 cm. Long and closed. No cervical abnormality seen. There is a 2.0 x 1.4 x 2.1 cm corpus luteum cyst. RIGHT OVARY: Measures 3.3 x 2.7 x 3.3 cm. No mass lesion. Normal flow. LEFT OVARY: Measures 2.2 x 1.7 x 1.7 cm. No solid mass. Normal flow. FREE FLUID: None. OTHER FINDINGS: None. IMPRESSION: 1. Single live intrauterine gestation with mean gestational age of 8 weeks and 4 days. The estimated date of delivery by ultrasound is 03/29/2019. The ultrasound dates correspond with the clinical dates. 2. 2.4 x 0.7 x 1.4 cm subchorionic hemorrhage. Clinical follow-up is advised. Progress Note: Labs,UA,EKG, US-OB ordered. D Dimer and cardiac enzymes are neg. She feels better and is stable to be d/c home with OBGYN follow up. Disposition - Disposition Disposition: HOME/ ROUTINE Disposition Time: 18:04 Condition: STABLE Additional Instructions: Follow up with your PMD and OBGYN within 1-2 days. Return to ED if feel worse. Instructions: Threatened Miscarriage (DC), Costochondritis (DC) Forms: [employer] ([place]), [employer] Excuse - Clinical Impression Clinical Impression: Chest wall pain, Subchorionic bleed, Pelvic pain affecting in first trimester, antepartum - PA / SHEET ROCK APPLIER / Resident Statement MD/DO has reviewed & agrees with the documentation as recorded. - Scribe Statement The provider has reviewed the documentation as recorded by the Scribe Kendra Mustafa Provider Attestation All medical record entries made by the Cheliibe were at my direction and personally dictated by me. I have reviewed the chart and agree that the record accurately reflects my personal performance of the history, physical exam, medical decision making, and the department course for this patient. I have also personally directed, reviewed, and agree with the discharge instructions and disposition.
[2018-08-21 18:03] VITALS: BP 110/76; PULSE 70; RESP 18
--- NOTE | 2018-08-22 18:56 | CARD ---
APPROVED REPORT Date of service: 08/21/2018 EKG Measurement Heart [id number] <Conclusion> Normal sinus rhythm with sinus arrhythmia Normal ECG
== END 2018-08-21 18:22 | disposition home or self-care (01) ==
LOC: C.ER 13:40
DX: O26.891 Other specified pregnancy related conditions, first trimester (principal); R10.2 Pelvic and perineal pain; R07.89 Other chest pain; O20.9 Hemorrhage in early pregnancy, unspecified; Z3A.08 8 weeks gestation of pregnancy

== ENCOUNTER 2018-10-02 16:53 | Emergency (ER) | payer OTHER ==
[2018-10-02 17:11] VITALS: BMI 21.4
[2018-10-02 17:22] VITALS: BP 112/79; PULSE 97; TEMP 98.4; O2SAT 100
[2018-10-02 18:00] LABS: HCG,QUALITATIVE URINE POSITIVE (NEGATIVE)
[2018-10-02 18:02] LABS: SQUAMOUS EPITHIAL 1 /hpf (0-5); URINE BILIRUBIN NEGATIVE (NEGATIVE); URINE BLOOD NEGATIVE (NEGATIVE); URINE CLARITY Clear (Clear); URINE COLOR Yellow (YELLOW); URINE GLUCOSE (UA) NORMAL (Normal); URINE LEUKOCYTE ESTERASE NEG Leu/uL (Negative); URINE PROTEIN NEGATIVE (NEGATIVE); URINE UROBILINOGEN NORMAL mg/dL (0.2-1.0)
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
[2018-10-02 18:53] VITALS: RESP 20
== END 2018-10-02 18:52 | disposition home or self-care (01) ==
LOC: C.ER 16:53
DX: R10.9 Unspecified abdominal pain (principal)